=== PATIENT | male | born 1960 | race African-American/Black ===

== ENCOUNTER 2019-04-11 21:37 | Emergency (ER) | payer OTHER | END 2019-04-11 23:32 | disposition left against medical advice (07) ==

== ENCOUNTER 2019-04-12 12:29 | Emergency (ER) | payer OTHER | END 2019-04-12 13:01 | disposition home or self-care (01) ==

== ENCOUNTER 2019-04-18 20:11 | Emergency (ER) | payer OTHER | END 2019-04-18 20:34 | disposition home or self-care (01) ==